=== PATIENT | female | born 1995 | race Caucasian/White ===

== ENCOUNTER 2017-06-12 23:30 | Outpatient (CLI) | payer OTHER ==
[~2017-06-12] VITALS: Ht 165.1 cm; Wt 74.9 kg
[2017-06-12 23:56] VITALS: BP 117/58; PULSE 101; RESP 18
[2017-06-12 23:57] VITALS: Ht 165.1 cm; Wt 74.9 kg
[2017-06-12] MEDS ORDERED: PREN1TAB13 PO (23:59)
--- NOTE | 2017-06-13 02:10 | TRIAGE ---
OB Triage Datetime Report Generated by CPN: 06/13/2017 02:10 Datetime: 06/13/2017 01:00 Stage of : OB Triage Labor Evaluation Frequency: NONE Monitor Mode: External Duration (sec)2399: NONE Resting Tone [place]: Relaxed Heart Rate FHR Baseline Rate: 145 Monitor Mode: External US Variability: Moderate 6-25 bpm Accelerations: 15X15 Category: Category I Datetime: 06/13/2017 00:30 Stage of : OB Triage Labor Evaluation Frequency: NONE Monitor Mode: External Duration (sec)2399: NONE Resting Tone [place]: Relaxed Heart Rate FHR Baseline Rate: 145 Monitor Mode: External US Variability: Moderate 6-25 bpm Accelerations: 15X15 Comments: APPROPRIATE FOR GESTATIONAL AGE Datetime: 06/12/2017 23:51 Stage of : OB Triage Maternal Assessment Level of Consciousness: Fully Conscious DTR's/Clonus: DTRs 2+; No Clonus Headache: Denies Blurred Vision: No Respiratory Effort: Unlabored; Regular Rhythm; Equal Expansion Breath Sounds, Left: Clear and Equal Breath Sounds, Right: Clear and Equal Nausea/Vomiting: Denies RUQ Epigastric Pain: Denies Lower Extremities Edema: None Degree: None Upper Extremities Edema: None Degree: None Facial Edema: None Temperature Route: Oral Fall Risk Assessment History of Falling: (0) No Secondary Diagnosis: (0) No Ambulatory Aid: (0) Bedrest/Nurse Assist IV Therapy: (0) No Gait: (0) Normal/Bedrest/Immobile Mental Status: (0) Oriented to Own Ability Fall Score: 0 Fall Risk Score Definition: No Risk: No action required Pain Assessment Pain Scale: 0 Pain Presence: None/Denies Pain Type: N/A Pain Goal: 2 Pain Relief Measures: Comfort Measures Pain Assessment Comments: Pt states that her pain was at 8/10 this afternoon. Datetime: 06/12/2017 23:50 EGA: 28.3 Datetime: 06/12/2017 23:49 Time of Arrival: 06/12/2017 23:30 Arrived By: Wheelchair Arrived From: Emergency Dept Chief Complaint: RIGHT ABDOMINAL PAIN Movement: Present Contractions: Denies/Absent Rupture of Membranes: Denies Vaginal Discharge: Denies Recent Sexual Intercouse: Denies Abdominal Trauma: Not Applicable Patient Complaints: Other Time Provider Notified: 06/13/2017 00:20 Provider Notified: DR. MURRIETA Initial Plan: VS, EFM, URINALYSIS, CALL OB
--- NOTE | 2017-06-13 06:38 | PN ---
Triage Information Date/Time June 12, 2017 Reason for visit: Abd/pelvic pain Weeks of Gestation 28 weeks gestation /Para 1 para 0 Diabetes: none Hypertention: none Additional information 22-year-old with IUP at 28 weeks presented with complaint of right mid abdominal pain, sharp, reports pain was yesterday, lasted about a couple of minutes in the right side. Reports then she moved to the left side and had experienced the same pain in the left side that was lasted for a couple of minutes and resolved. Currently she denies any abdominal pain. She denies any uterine contractions urinary symptoms, decreased movement, vaginal bleeding or any other complaints. Noted to have 3+ leukocyte esterase and 16 white BC, and her urine consistent with UTI. Patient is asymptomatic Objective Vital Signs Date Time Temp Pulse Resp B/P Pulse Ox O2 Delivery O2 Flow Rate FiO2 06/12/17 23:56 98.2 101 18 117/58 Room Air Heart Rate: 130's Contractions: None Exam Appears: Alert and oriented 4. Patient does not appear to be in any acute distress. Abdomen: Soft, gravid, fundal height consistent with gestational age. No tenderness, no rebound tenderness, no guarding, no rigidity, no suprapubic tenderness, no CVA tenderness Cervix: No calf tenderness, no click no edema Results/Medications Results 24 hrs Laboratory Tests Test 06/12/17 23:45 06/12/17 23:51 Urine Color YELLOW Urine Clarity CLEAR Urine pH 6.0 Urine Specific [place] 1.023 Urine Ketones NEGATIVE Urine Nitrite NEGATIVE Urine Bilirubin NEGATIVE Urine Urobilinogen 1+ H Urine Leukocyte Esterase 3+ H Urine Microscopic RBC 1 Urine Microscopic WBC 16 H Urine Squamous Epithelial Cells FEW Urine Bacteria FEW A Urine Mucus FEW A Urine Hemoglobin NEGATIVE Urine Glucose NEGATIVE Urine Total Protein NEGATIVE Bedside Urine pH (LAB) 7.0 Bedside Urine Protein (LAB) 1+ H Bedside Urine Glucose (UA) Negative Bedside Urine Ketones (LAB) Negative Bedside Urine Blood Negative Bedside Urine Nitrite (LAB) Negative Bedside Urine Leukocyte Esterase (L 1+ H Disposition: Discharge Assessment/Plan IUP at 28 weeks Right and left sharp abdominal pain resolved. Likely muscular cramp Incidental finding of UTI We will be treated with Keflex Urine culture was sent and for sensitivity Discussed with the patient about adequate hydration and follow-up within 24-48 hours with her primary OB Precaution was given to present to triage if she has any fever, chills, recurrent abdominal pain, leaking of fluid, vaginal bleeding or decreased movement or for any other concerns Patient verbalized understanding She will follow with her OB office in 1-2 days. Urine culture will be obtained from the hospital by her primary OB office for follow-up and management SUJATA MURRIETA MD Jun 13, 2017 06:38
== END 2017-06-13 01:18 | disposition home or self-care (01) ==
LOC: L-D 23:30 → OBT 23:30
PROVIDERS: ATTEND Obstetrics & Gynecology Obstetrics
DX: O26.892 Other specified pregnancy related conditions, second trimester (principal); O23.42 Unspecified infection of urinary tract in pregnancy, second trimester; R10.2 Pelvic and perineal pain; Z3A.28 28 weeks gestation of pregnancy
CPT/HCPCS: 81001; 81003; Z7500; G0463

== ENCOUNTER 2017-08-22 22:40 | Inpatient (IN) | END 2017-08-23 21:51 | disposition home or self-care (01) | DRG 782 ==

== ENCOUNTER 2017-08-31 03:10 | Inpatient (IN) | END 2017-09-02 16:52 | disposition home or self-care (01) | DRG 775 ==